=== PATIENT | male | born 1955 | race Caucasian/White ===

== ENCOUNTER 2023-09-28 09:41 | Outpatient (CLI) | payer MEDICARE, MEDICAID, SELFPAY ==
--- NOTE | 2023-09-28 11:30 | NEURO_ITS ---
Impression: # Insulin dependent diabetic complains of right foot drop. # No electrical responses could be obtained from motor or sensory nerves. # Needle/EMG exam revealed chronic neurogenic changes with decreased motor unit potentials but no active fibrillations. Nerve Conduction Studies Anti Sensory Summary Table Stim Site NR Peak (ms) P-T Amp (?V) Site1 Site2 Delta-P (ms) Dist (cm) Nathaniel (m/s) Right Saphenous Anti Sensory (Ant Med Mall) NO RESPONSE 14cm NR 14cm Ant Med Mall 0.0 Right Sup Fibular Anti Sensory (Ant Lat Mall) NO RESPONSE 14 cm NR 14 cm Ant Lat Mall 16.0 Right Sural Anti Sensory (Lat Mall) NO RESPONSE Calf NR Calf Lat Mall 16.0 Motor Summary Table Stim Site NR Onset (ms) O-P Amp (mV) Site1 Site2 Delta-0 (ms) Dist (cm) Nathaniel (m/s) Right Peroneal Motor (Vastus Med) NO RESPONSE Ankle NR Popit Ankle 0.0 Popit NR Right Tibial Motor (Abd Cuellar Brev) NO RESPONSE Ankle NR Knee NR F Wave Studies NR F-Lat (ms) L-R F-Lat (ms) Right Peroneal (Mrkrs) (EDB) NO RESPONSE NR Right Tibial (Mrkrs) (Abd Hallucis) NO RESPONSE NR EMG Side Muscle Nerve Root Ins Act Fibs Amp Dur Recrt Comment Right AntTibialis Dp Br Fibular L4-5 Nml Nml Decr >12ms +4 Right Gastroc Tibial S1-2 Nml Nml Decr >12ms +4 Right Fibularis Long Sup Br Fibular L5-S1 Nml Nml Decr >12ms +4 Right Flex Dig Long Tibial L5-S2 Nml Nml Decr >12ms +4 Right Ext Dig Brev Dp Br Fibular L5, S1 Nml Nml Decr >12ms +4 MTDD
== END 2023-09-28 09:42 | disposition home or self-care (01) ==
LOC: ANHNEURO 09:42
PROVIDERS: PCP Internal Medicine Infectious Disease; Visit Provider Podiatrist Foot & Ankle Surgery
DX: M21.371 Foot drop, right foot (principal); E11.9 Type 2 diabetes mellitus without complications; Z79.4 Long term (current) use of insulin
CPT/HCPCS: 95886; 95909